=== PATIENT | female | born 1940 | race Caucasian/White ===

== ENCOUNTER 2017-01-16 12:34 | Observation (INO) | payer MEDICARE ==
--- NOTE | ~2017-01-16 | HP ---
History And Physical [id number] [place]. [address] NAME: KELLI BLUE : 44 STATUS : REG ER PAT#: [id number] AGE: 76 ADM/REG DATE : 01/16/17 MR#: [id number] REPORT SERV DATE: 01/16/17 DICTATED BY: RODRIGUEZ BEAN DATE: 01/16/17 REPORT STATUS : Draft TRANSCRIBED BY: MODL DATE: 01/16/17 DATE OF ADMISSION: 01/16/2017 CHIEF COMPLAINT: Atrial fibrillation and syncope. HISTORY OF PRESENT ILLNESS: This is a 76-year-old lady with history of paroxysmal atrial fibrillation, who has had syncopal episode here in the ER. With her paroxysmal atrial fibrillation, the patient has atrial fibrillation with RVR episodes every once in a while. It is usually well controlled with Inderal alone, but today, she had a flare up. The patient came to the ER. In the ER, the patient was found to be afebrile and hemodynamically stable, but her heart rate was as high as 169. The patient was started on Cardizem drip with which the patient did convert to normal sinus rhythm with heart rates in the 80s to 90s. The patient was seen by Dr. Medina from Cardiology who actually cleared her for discharge to home. As the patient was getting ready to go home, she went to the bathroom to empty her bladder. Upon emptying her bladder, as the patient was walking out of the bathroom, the patient became acutely lightheaded and she had a syncopal episode. The patient was unconscious for about a minute and she came to, the patient felt severely weak. Internal Medicine consultation was requested for admission of the patient for further evaluation and care. At the time of my encounter with the patient, the patient denies any chest pain or shortness of breath. The patient reports that she feels back at her normal self. REVIEW OF SYSTEMS: The patient denies any fevers or chills. Also, 14-point review of systems reviewed and negative other than mentioned above. MEDICATIONS: 1. Elavil 25 mg p.o. b.i.d. 2. Amaryl 2 mg p.o. daily. 3. Ativan 1 mg p.o. b.i.d. 4. Metformin 500 mg p.o. b.i.d. 5. Prilosec 20 mg p.o. daily. 6. Inderal 20 mg p.o. b.i.d. 7. The patient is supposed to be on Eliquis, however, the patient has not been taking the Eliquis due to costs. ALLERGIES: 1. HYDROMORPHONE. 2. STADOL. 3. MORPHINE. 4. MEPERIDINE. PAST MEDICAL HISTORY: 1. Paroxysmal atrial fibrillation, for which the patient follows with a new physician that she just started following up with within the [facility] group. 2. Depression and anxiety. History And Physical [address] [address] NAME: KELLI BLUE : 44 STATUS : REG ER PAT#: [id number] AGE: 76 ADM/REG DATE : 01/16/17 MR#: [id number] REPORT SERV DATE: 01/16/17 DICTATED BY: RODRIGUEZ BEAN DATE: 01/16/17 REPORT STATUS : Draft TRANSCRIBED BY: NICK DATE: 01/16/17 3. Diabetes type 2. 4. Smoking history. PAST SURGICAL HISTORY: 1. Cholecystectomy. 2. Bilateral knee surgery. 3. Partial hysterectomy. 4. Kidney stones. FAMILY HISTORY: Coronary artery disease. SOCIAL HISTORY: The patient does not smoke anymore as she quit smoking in 1977. The patient does not consume alcohol. The patient is and the patient has three kids and two of them are here in the ER with the patient. PHYSICAL EXAMINATION: VITAL SIGNS: Temperature 100.0, blood pressure 146/85, pulse 169, respiratory rate is 16, and saturating 96% on room. NEURO: The patient is alert and oriented x3 with no focal neurologic deficits. GENERAL: The patient is awake, does not appear to be in acute distress, and she is cooperative. NECK: No JVD. No lymphadenopathy. Normal thyroid. CHEST: No midline sternotomy scar and no tenderness to palpation. LUNGS: Clear to auscultation bilaterally with normal respiratory effort on room air. CARDIOVASCULAR: Regular rate and rhythm with no murmurs, rubs, or gallops and PMI is nondisplaced. ABDOMEN: Soft, nontender, with active bowel sounds and no organomegaly. EXTREMITIES: No edema. Normal distal pulses. No calf tenderness. SKIN: Clean, dry, warm, and intact. LABORATORY DATA: Sodium is 140, potassium 4.1, chloride 107, BUN 16, creatinine 0.90, glucose 153, calcium is 9.1, and magnesium 1.9. White blood cell count is 12.3, hemoglobin 13.1, platelets 258. INR is 0.9. Troponin is less than 0.02. ASSESSMENT: This is a 76-year-old lady with history of paroxysmal atrial fibrillation, presenting with paroxysmal atrial fibrillation with rapid ventricular response as well as a syncopal episode. 1. Micturition syncope. 2. Atrial fibrillation with rapid ventricular response, with baseline paroxysmal atrial fibrillation. The patient has converted to sinus rhythm already down here in the ER. 3. Diabetes type 2. 4. Anxiety and depression. 5. Remote history of smoking. PLAN: My plan is to admit the patient for observation overnight. The patient will be given gentle IV fluid resuscitation, and I will simply monitor the patient on the telemetry with serial vital signs. If the patient feels as good as she feels now tomorrow, then the History And Physical [address] [address] NAME: KELLI BLUE : 44 STATUS : REG ER PAT#: [id number] AGE: 76 ADM/REG DATE : 01/16/17 MR#: [id number] REPORT SERV DATE: 01/16/17 DICTATED BY: RODRIGUEZ BEAN DATE: 01/16/17 REPORT STATUS : Draft TRANSCRIBED BY: NICK DATE: 01/16/17 patient will be discharged to home without necessitating further workup. While she is here, I will also go ahead and check labs to include repeat electrolytes and troponins. Also, I will restart the patient on Eliquis for the atrial fibrillation and ask Case Management to provide resources so that the patient may continue Eliquis upon discharge. Otherwise, for the rest of stable past medical conditions, including diabetes, anxiety, depression, et al., I will continue home medications. Standard DVT prophylaxis. The patient is full code at this time. YSEsperanza/NICK Rodriguez Bean MD / [id number] CC: CASTILLO VILLELA
--- NOTE | ~2017-01-16 | DS ---
Discharge Summary [address] [place]. [address] NAME: KELLI BLUE : 44 STATUS : DIS Jeremy PAT#: [id number] AGE: 76 ADM/REG DATE : 01/16/17 MR#: [id number] REPORT SERV DATE: 01/18/17 DICTATED BY: RODRIGUEZ BEAN DATE: 01/17/17 REPORT STATUS : Draft TRANSCRIBED BY: NICK DATE: 01/17/17 ADMISSION DATE: 01/16/2017 DISCHARGE DATE: 01/17/2017 DISCHARGE DIAGNOSES: 1. Micturition syncope. 2. Atrial fibrillation with rapid ventricular response, episode down in the ER, but the patient has remained in sinus rhythm throughout the hospital stay. 3. Diabetes type 2. 4. Anxiety and depression. 5. Remote history of smoking. CONSULTANTS: Cardiology. PROCEDURES: None. HOSPITAL COURSE: This is a 76-year-old lady with history of paroxysmal AFib who was admitted to the hospital after she has had an episode of AFib with RVR followed by a micturition syncope down in the ER. For details, please refer to my own H and P. In summary, the patient was simply admitted for overnight observation. The patient remained in sinus rhythm under telemetry and the patient did not have any further episode of syncope or near syncope. The following morning, the patient felt great and the patient was seen by Cardiology who was okay with her going home with outpatient stress echocardiogram to be scheduled two to three weeks from the day of discharge. The patient was very much eager to go home and it was felt that the patient could be safely discharged home. Of note, there was no further imaging evaluation during this hospital stay. The patient did have a troponin that was negative. The patient is now being discharged home with close outpatient followup plans. DISPOSITION: Home. DISCHARGE MEDICATIONS: No changes. FOLLOWUP: 1. Please follow up with PCP in the next one to two weeks. 2. Please follow up with Cardiology with a stress echocardiogram as instructed. A total of 25 minutes spent in coordinating this patient's discharge today. DICTATED BY: Rodriguez Bean MD Esperanza/NICK Discharge Summary [address] [place]. [address] NAME: KELLI BLUE : 44 STATUS : DIS Jeremy PAT#: [id number] AGE: 76 ADM/REG DATE : 01/16/17 MR#: [id number] REPORT SERV DATE: 01/18/17 DICTATED BY: RODRIGUEZ BEAN DATE: 01/17/17 REPORT STATUS : Draft TRANSCRIBED BY: MODL DATE: 01/17/17 Rodriguez Bean MD / [id number] CC: Jani Estrada LISA M
[2017-01-16 12:05] LABS: BASOPHILS 0.5 %; BASOPHILS ABSOLUTE 0.06 10/3/uL (0.0-0.16); EOSINOPHILS 4.8 %; EOSINOPHILS ABSOLUTE 0.59 10/3/uL (0.0-0.53); ER CBC TAT 0 Hrs 05 Mins; HEMATOCRIT 39.3 % (36.0-48.0); HEMOGLOBIN 13.1 g/dL (12.0-16.0); IMMATURE GRANULOCYTES 0.2 %; IMMATURE GRANULOCYTES ABSOLUTE 0.03 10/3/uL (0.0-0.11); LYMPHOCYTES 17.6 %; LYMPHOCYTES ABSOLUTE 2.16 10/3/uL (0.67-4.30); MEAN CORPUS HGB CONC 33.3 g/dL (32.0-36.0); MEAN CORPUSCULAR HEMOGLOB 29.2 pg (26.0-34.0); MEAN CORPUSCULAR VOLUME 87.5 fL (80-100); MEAN PLATELET VOLUME 9.2 fL (9.2-13.0); MONOCYTES ABSOLUTE 0.86 10/3/uL (0.21-1.20); NEUTROPHILS 69.9 %; NEUTROPHILS ABSOLUTE 8.57 10/3/uL (2.02-8.40); PLATELET COUNT 258 10/3/uL (150-400); RBC DISTRIBUTION WIDTH 14.6 % (12.0-16.0); RED CELL COUNT 4.49 10/6/uL (4.0-5.6); WHITE BLOOD CELLS 12.3 10/3/uL (4.5-10.5)
[2017-01-16 12:07] LABS: MANUAL DIFF NO %
[2017-01-16 12:12] LABS: INTERNATIONAL NORMAL RATI 0.9 UNITS (-); PARTIAL THROMBO TIME 25.8 SEC (22.5-37.2); PROTIME (NOT ORD) 12.5 SEC (12.0-14.5)
[2017-01-16 12:19] LABS: BUN (BLOOD UREA NITROGEN) 16 MG/DL (6-23); CALCIUM, SERUM 9.1 MG/DL (8.5-10.4); CHEST PAIN PROFILE TAT 0 Hrs 19 Mins; CHLORIDE, SERUM 107 MMOL/L (96-112); CO2 (CARBON DIOXIDE) 28 MMOL/L (24-34); GFR AFRICAN AMERICAN 73 ML/MIN (>=60); GFR NON AFRICAN AMERICAN 63 ML/MIN (>=60); GLUCOSE, SERUM 153 MG/DL (60-99); POTASSIUM, SERUM 4.1 MMOL/L (3.5-5.3); SODIUM, SERUM 140 MMOL/L (135-148); TROPONIN I <0.02 NG/ML (<0.05)
[~2017-01-16 12:34] MED LIST: AMARYL2 PO; AMIT25 PO; ATV1 PO; BETAPACE80 PO; CIP5 PO; D.O.S.100 MG PO; DSS PO; ELIQUIS 2.5 MG2.5 MG PO; ESTRADERM0.1 MG TD; ESTRADIOL PATCH; FLUCON1 PO; GLUCPH PO; GOLD BOND TOP; I20 PO; LEVAQUIN750 MG PO; LORT7 PO; MIRALAX POWDER1 PKT PO; OCEAN NAS; PEP20 PO; PRILO PO; PROTONIX PO; ROLAID PO; STOOL SOFTEN100 MG PO; SYSTANE OPH; VICODINTAB PO
[2017-01-16] MEDS ORDERED: AMIT25 PO (13:50)
[2017-01-16] MEDS ORDERED: AMARYL2 PO (13:51)
[2017-01-16] MEDS ORDERED: ATV1 PO (13:53)
[2017-01-16] MEDS ORDERED: PRILO PO (13:53)
[2017-01-16] MEDS ORDERED: I20 PO (13:54)
[2017-01-16] MEDS ORDERED: GLUCPH PO (13:54)
[2017-01-17 02:38] LABS: BASOPHILS 0.4 %; BASOPHILS ABSOLUTE 0.05 10/3/uL (0.0-0.16); EOSINOPHILS 3.4 %; EOSINOPHILS ABSOLUTE 0.39 10/3/uL (0.0-0.53); HEMATOCRIT 36.8 % (36.0-48.0); HEMOGLOBIN 12.2 g/dL (12.0-16.0); IMMATURE GRANULOCYTES 0.4 %; IMMATURE GRANULOCYTES ABSOLUTE 0.04 10/3/uL (0.0-0.11); LYMPHOCYTES ABSOLUTE 2.74 10/3/uL (0.67-4.30); MANUAL DIFF NO %; MEAN CORPUS HGB CONC 33.2 g/dL (32.0-36.0); MEAN CORPUSCULAR HEMOGLOB 29.3 pg (26.0-34.0); MEAN CORPUSCULAR VOLUME 88.5 fL (80-100); MEAN PLATELET VOLUME 9.1 fL (9.2-13.0); MONOCYTES 7.3 %; MONOCYTES ABSOLUTE 0.83 10/3/uL (0.21-1.20); NEUTROPHILS 64.5 %; NEUTROPHILS ABSOLUTE 7.35 10/3/uL (2.02-8.40); PLATELET COUNT 250 10/3/uL (150-400); RBC DISTRIBUTION WIDTH 14.7 % (12.0-16.0); RED CELL COUNT 4.16 10/6/uL (4.0-5.6); WHITE BLOOD CELLS 11.4 10/3/uL (4.5-10.5)
[2017-01-17 03:00] LABS: CALCIUM, SERUM 8.9 MG/DL (8.5-10.4); CHLORIDE, SERUM 105 MMOL/L (96-112); CO2 (CARBON DIOXIDE) 29 MMOL/L (24-34); CREATININE 0.94 MG/DL (0.55-1.02); FREE T4 1.13 NG/DL (0.76-1.46); GFR AFRICAN AMERICAN 69 ML/MIN (>=60); GFR NON AFRICAN AMERICAN 60 ML/MIN (>=60); GLUCOSE, SERUM 130 MG/DL (60-99); POTASSIUM, SERUM 3.9 MMOL/L (3.5-5.3); SODIUM, SERUM 142 MMOL/L (135-148); TROPONIN I <0.02 NG/ML (<0.05)
[2017-01-17 03:02] LABS: BUN (BLOOD UREA NITROGEN) 20 MG/DL (6-23)
[2017-01-17] MEDS ORDERED: ELIQUIS 5 MG TAB5 MG PO (08:46)
[2017-03-06] MEDS ORDERED: AMARYL2 PO (13:18)
[2017-03-06] MEDS ORDERED: GLUCPH PO (13:19)
[2017-03-06] MEDS ORDERED: NORCO1 TA1 PO (13:19)
[2017-03-06] MEDS ORDERED: I20 PO (13:20)
[2017-03-06] MEDS ORDERED: [UNRECOGNIZED DRUG - OTHER] PO (13:21)
[2017-03-06] MEDS ORDERED: AMIT25 PO (13:21)
[2017-03-06] MEDS ORDERED: PRILO PO (13:21)
[2017-03-06] MEDS ORDERED: VITAMIN D31000 UNIT PO (13:22)
[2017-03-06] MEDS ORDERED: [UNRECOGNIZED DRUG - OTHER] PO (13:23)
[2017-03-06] MEDS ORDERED: ATV1 PO (13:25)
[2017-03-06] MEDS ORDERED: CEFT5 PO (13:26)
[2017-03-06] MEDS ORDERED: ELIQUIS 5 MG TAB5 MG PO (13:31)
== END 2017-01-17 13:56 | disposition home or self-care (01) ==
LOC: ER 12:34 → 6NO 22:59
PROVIDERS: Emergency Medicine; Internal Medicine
DX: Z88.5 Allergy status to narcotic agent (principal); Z79.899 Other long term (current) drug therapy; I48.91 Unspecified atrial fibrillation; E11.9 Type 2 diabetes mellitus without complications; F32.9 Major depressive disorder, single episode, unspecified; F41.9 Anxiety disorder, unspecified; Z79.84 Long term (current) use of oral hypoglycemic drugs; Z79.891 Long term (current) use of opiate analgesic; R55 Syncope and collapse; Z87.891 Personal history of nicotine dependence; Z90.49 Acquired absence of other specified parts of digestive tract; Z98.890 Other specified postprocedural states; Z82.49 Family history of ischemic heart disease and other diseases of the circulatory system
CPT/HCPCS: 71010; 80048; 82962; 83735; 84439; 84443; 84484; 85025; 85610; 85730; 87040; 87070; 87205; 93005; 96374; 99285; A9270-GY; G0378